=== PATIENT | male | born 1980 | race African-American/Black ===

== ENCOUNTER 2025-06-02 05:02 | Observation (INO) | payer OTHER, SELFPAY ==
--- NOTE | ~2025-06-02 | CT_ITS ---
CLINICAL HISTORY: abcess depth L side face neck CT soft tissue neck with contrast Comparison: CT - CT SOFT TISSUE NECK W IV CON - 06/02/25 06:22 EDT Findings: The visualized intracranial contents are unremarkable. No prevertebral fluid. Epiglottis is within normal limits. Pharyngeal mucosal space and parapharyngeal fat are normal. There is edema and inflammatory changes in the left neck superficially involving the left parotid gland associated with edema/ inflammation of the left masseter muscle. There is also subcutaneous soft tissue edema and skin thickening associated with an abscess located within the subcutaneous fat measuring 1.7 cm in AP dimension, up to 1 cm in depth and 1.7 cm in cephalocaudal dimension. This is seen entirely within the subcutaneous fat though there may be sinus tracts to the skin surface. No suspicious thyroid nodules. No consolidation at the lung apices. No acute fractures. IMPRESSION: Inflammation left face as described from the level of the parotid gland through the submandibular gland. Abscess within the subcutaneous fat as described with associated sinus tracts to the skin surface. There superficial involvement of the left parotid gland and edema/inflammation of the left masseter muscle as well as extensive skin thickening. This document has been electronically signed by: Luis Alberto Li MD on 06/02/2025 09:25:52
[2025-06-02 05:05] VITALS: BP 111/71; PULSE 59; RESP 16; TEMP 36.6; O2SAT 97; BMI 25.1
--- NOTE | 2025-06-02 05:27 | PC.NURSE ---
Addendum entered by Elliott Rees RN 06/02/25 05:30: pt A+Ox4, calm and cooperative Original Note: this RN assumed care of this pt approximately at this time, provider Isaias Carbone at the bedside draining abscess to the left cheek
--- NOTE | 2025-06-02 05:33 | PC.NURSE ---
provider Isaias Carbone at the bedside, drainiage skin abscess to pt left cheek, pt tolerating procedure well, no apparent distress noted, calm and cooperative
--- NOTE | 2025-06-02 05:54 | ED_ITS ---
HPI - Skin/Abscess/Foreign Bdy General Chief complaint: Skin/Abscess/Foreign Body Stated complaint: infection left cheek Time Seen by Provider: 06/02/25 05:18 Source: patient Mode of arrival: ambulatory Limitations: no limitations History of Present Illness ED Provider: Dr. Ne Carbone HPI narrative: Patient comes to the emergency room complaining of an abscess to the left side of the face/neck. Patient states that a proximally 6 days ago, he noted a pimple on his cheek, traits wheezing and out. Patient states that the next day, he started seeing left-sided facial/neck swelling and eventually started developing an abscess and was draining pus. Patient states that couple of days ago he went to [facility]. Patient had a fever, given antipyretics, seems that patient left before being seen. Patient states that since then the abscess has gradually become more big, draining more pus. Patient complaining of localized pain. Related Data Allergies Allergy/AdvReac Type Severity Reaction Status Date / Time No Known Allergies Allergy Verified 06/02/25 05:09 Review of Systems 2 Review of Systems: Constitutional : No Weight loss, No Fever, No Chills, No Night Sweats, No Fatigue, No Malaise ENT/Mouth : No Hearing loss, No Ear Pain, No Nasal Congestion, No Sinus Pain, No Hoarseness, No sore throat, No Rhinorrhea, No Swallowing Difficulty Eyes: No Eye Pain, No Swelling, No Redness, No Foreign Body, No Discharge, No Vision Changes Cardiovascular : No Chest Pain, No SOB, No Dyspnea on Exertion, No Orthopnea, No Edema, No Palpitations Respiratory : No Cough, No Sputum, No Wheezing, No Smoke Exposure, No Dyspnea Gastrointestinal : No Nausea, No Vomiting, No Diarrhea, No Constipation, No abdominal Pain, No Hematochezia, No Melena Genitourinary : no irregular bleeding, No Dysuria, No Urinary Frequency, No Hematuria, No Urinary Incontinence, No Urgency, No Flank Pain, No Urinary Flow Changes, No Hesitancy Musculoskeletal : No joint pain, No Myalgias, No Joint Swelling Skin : Complaining of a large abscess to the left side of the face/neck and pain Neuro : No Weakness, No Numbness, No Paresthesias, No Loss of Consciousness, No Dizziness, No Headache Psych : No Anxiety/Panic, No Depression, No SI/HI/AH/VH, No Social Issues, Heme/Lymph: No Bruising, No Bleeding,No Lymphadenopathy Endocrine : No Polyuria, No Polydipsia, No Temperature Intolerance [facility] Social History Social History Patient Tobacco Use Status: Tobacco use Unknown Advance Directives: No Advance Directives Information Provided: Yes Do you have a plan to hurt others: No Plan Physical Exam 2 Exam: Exam: Appearance: Alert. Oriented X3. No acute distress. Eyes: Pupils equal, round and reactive to light. ENT: Pharynx normal. Neck: Normal inspection. Neck supple. No lymph nodes noted. No crepitus CVS: Normal heart rate and rhythm. Pulses normal. Normal S1 and S2 Respiratory: No respiratory distress. Breath sounds normal. No Wheezing. No rales Abdomen: Soft and nontender. No rigidity. No distention. Skin: Skin warm and dry. In the face, patient has a large abscess, a proximally 4 cm x 3 cm, surrounding induration. Extremities: No lower extremity edema. No Lacerations. No Rash Neuro: Oriented X 3. No motor deficit. No sensory deficit. Moving all extremities. No slurred speech. CN 2 through 12 grossly intact Psych: calm, cooperative, normal affect Vital Signs: Vital Signs: Last Vital Signs Temp 97.8 F 06/02/25 09:42 Pulse 60 06/02/25 09:42 Resp 16 06/02/25 09:42 BP 100/68 06/02/25 09:42 Pulse Ox 100 06/02/25 09:42 O2 Del Method Room Air 06/02/25 09:42 BMI result Body Mass Index 25.1 Medications Administered Discontinued Medications Generic Name Dose Route Start Last Admin Trade Name Stephaneq PRN Reason Stop Dose Admin Vancomycin HCl 2,000 mg in 500 mls @ 250 mls/hr 06/02/25 05:50 06/02/25 08:10 Vancomycin/Ns IV 06/02/25 07:49 Infused ONCE ONE Infusion Piperacillin Sod/Tazobactam 50 mls @ 100 mls/hr 06/02/25 05:50 06/02/25 06:44 Sod 3.375 gm/ Sodium Chloride IV 06/02/25 06:19 Infused ONCE ONE Infusion Sodium Chloride 1,000 mls @ 999 mls/hr 06/02/25 05:50 06/02/25 08:43 Ns IVCONT 10/26/25 06:50 Infused .Q1H1M ONE Infusion Iohexol 60 ml 06/02/25 06:43 06/02/25 06:44 Iohexol 350 Mg/Ml 100 Ml Infus..Btl IV 06/02/25 06:44 60 ml ONCE ONE Administration Ketorolac Tromethamine 30 mg 06/02/25 05:51 06/02/25 06:10 Ketorolac Tromethamine 30 Mg/Ml Vial IVPUSH 06/02/25 05:52 30 mg ONCE ONE Administration Lidocaine HCl 10 ml 06/02/25 05:21 06/02/25 05:27 Lidocaine Hcl 1 % 20 Ml Vial INFILTRATI 06/02/25 05:22 Not Given ONCE ONE Medical Decision Making Medical Decision Making MDM Narrative: Patient was infiltrated with lidocaine. Patient had several small holes were pus was already draining. One of the sites were pus was already draining, a small incision was made to help the drainage. Given the location of the abscess in the face, a large incision was not performed. I was still able to drain a proximally 5 mL of foul-smelling pus. Given the extend of the this is, we will obtain a CT scan, it may be loculated. Yesterday patient was seen at [facility], patient reports that he had fever and he has been taking ibuprofen. Patient has been started on IV Zosyn, vanco and fluids. Patient will likely need inpatient level of care and IV antibiotics Official CT scan report pending. I discussed the patient with Dr. rajput from the Medicine team, patient to be admitted wants we get the report from Radiology Colleague follow-up with the radiology report and doctor's now Patient agrees with plan Time: 09:49 Date: 06/02/25 Provider: Anish Mesa MD I assumed care of this patient from my colleague, physician medical assistant dermatology Get Mrianda at 06:00 hours pending the patient's CT scan of the face and neck. CT scan revealed an abscess within the subcutaneous fat with superficial involvement of the left parotid gland with evidence of cellulitis. Patient was seen by the hospitalist, Dr. Lara by and admitted for further care. Differential Diagnosis Differential Diagnoses: The differential diagnosis associated with the presentation includes (Patient has cellulitis, abscess) Admission/Observation Consideration of admission/observation: Escalation of care including admission/observation considered Consult Healthcare Provider Management of the patient was discussed with: Hospitalist Lab Data [facility] Lab Attestation statement: I reviewed the patient's lab results. 06/02/25 05:54 06/02/25 05:54 Labs: Lab Results 06/02/25 Range/Units 05:54 WBC 6.1 (4.8-10.8) X10*3/uL RBC 4.71 (4.60-5.80) X10*6/uL Hgb 13.1 L (14.0-18.0) g/dl Hct 40.1 L (42.0-52.0) % MCV 85.1 (80.0-98.0) fL MCH 27.8 (27.0-33.0) pg MCHC 32.7 (31.0-36.0) g/dl RDW 12.4 (11.0-16.0) % Plt Count 184 (160-400) X10*3/uL MPV 11.6 (9.4-12.4) fL Immature Gran % (Auto) 0.2 (0.0-0.4) % Neut % (Auto) 65.1 (45-73) % Lymph % (Auto) 22.8 (20-40) % [place] % (Auto) 9.0 (2-11) % Eos % (Auto) 2.6 (0-4) % Baso % (Auto) 0.3 (0-2) % Lymph # (Auto) 1.4 (1.2-4.9) X10*3/uL [place] # (Auto) 0.6 (0.1-1.2) X10*3/uL Eos # (Auto) 0.2 (0.0-0.4) X10*3/uL Baso # (Auto) 0.0 (0.0-0.2) X10*3/uL Abs Immat Gran (auto) 0.01 (0.00-0.03) X10*3/uL Absolute Neuts (auto) 4.0 (2.0-8.3) x10*3/uL Absolute Nucleated RBC 0.000 (0.0-0.012) X10*3/uL Nucleated RBC % (auto) 0.0 (0.0-0.2) /100WBC Sodium 141 (135-145) mmol/L Potassium 4.1 (3.3-5.1) mmol/L Chloride 107 (96-108) mmol/L Carbon Dioxide 26 (22-29) mmol/L Anion Gap 12 (12-20) BUN 15 (9-16) mg/dL Creatinine 1.00 (0.5-1.4) mg/dL Estim Creat Clear Calc 94.2 Estimated GFR > 60 Random Glucose 94 (60-115) mg/dL Lactic Acid 0.7 (0.5-2.0) mmol/L Calcium 9.4 (8.4-10.2) mg/dL Independent Interpretation I performed an independent interpretation of an: CT Scan Interpretation: CT soft tissue neck with contrast Comparison: CT - CT SOFT TISSUE NECK W IV CON - 06/02/25 06:22 EDT Findings: The visualized intracranial contents are unremarkable. No prevertebral fluid. Epiglottis is within normal limits. Pharyngeal mucosal space and parapharyngeal fat are normal. There is edema and inflammatory changes in the left neck superficially involving the left parotid gland associated with edema/ inflammation of the left masseter muscle. There is also subcutaneous soft tissue edema and skin thickening associated with an abscess located within the subcutaneous fat measuring 1.7 cm in AP dimension, up to 1 cm in depth and 1.7 cm in cephalocaudal dimension. This is seen entirely within the subcutaneous fat though there may be sinus tracts to the skin surface. No suspicious thyroid nodules. No consolidation at the lung apices. No acute fractures. IMPRESSION: Inflammation left face as described from the level of the parotid gland through the submandibular gland. Abscess within the subcutaneous fat as described with associated sinus tracts to the skin surface. There superficial involvement of the left parotid gland and edema/inflammation of the left masseter muscle as well as extensive skin thickening. This document has been electronically signed by: Luis Alberto Li MD on 06/02/2025 09:25:52 Procedures Abscess I/D Site: face Side (if applicable): left Local Anesthetic: lidocaine 1% Amount of anesthesia used (mL): 7 Technique: incised with blade Amount of fluid expressed (mL): 5 Packing used?: none Critical Care Time Critical Care Time Critical Care Time: Yes Total Critical Care Time: 45 Attestation: I have personally provided critical care time. Time includes review of lab data, radiology results, discussion with consultants, and monitoring for potential decompensation. Intervention performed as documented. Discharge Plan Discharge Patient Disposition: Admitted As Inpatient Print Language: Syriac
[2025-06-02 06:01] LABS: Hematocrit 40.1 % (42.0-52.0); Hemoglobin 13.1 g/dl (14.0-18.0); Imm Gran Abs Auto 0.01 X10*3/uL (0.00-0.03); Imm Gran Pct Auto 0.2 % (0.0-0.4); Lymphocytes Absolute Auto 1.4 X10*3/uL (1.2-4.9); MANUAL DIFF FLAG NO; Mean Corpuscular HGB Conc 32.7 g/dl (31.0-36.0); Mean Corpuscular Hemoglobin 27.8 pg (27.0-33.0); Mean Corpuscular Volume 85.1 fL (80.0-98.0); NRBC Abs Auto 0.000 X10*3/uL (0.0-0.012); NRBC Pct Auto 0.0 /100WBC (0.0-0.2); Platelet Count 184 X10*3/uL (160-400); Red Blood Count 4.71 X10*6/uL (4.60-5.80); White Blood Count 6.1 X10*3/uL (4.8-10.8)
[2025-06-02] MEDS: vancomycin/NS 2,000 MG/500 ML PLAST..BAG 250 MG IV (06:10)
[2025-06-02 06:15] LABS: Anion Gap 12 (12-20); Blood Urea Nitrogen 15 mg/dL (9-16); Calcium 9.4 mg/dL (8.4-10.2); Carbon Dioxide 26 mmol/L (22-29); Chloride 107 mmol/L (96-108); Creatinine Clr Calc Pharmacy 94.2; Estimated Glomerular Filt Rate > 60; Potassium 4.1 mmol/L (3.3-5.1); Sodium 141 mmol/L (135-145)
--- NOTE | 2025-06-02 06:35 | PC.NURSE ---
approximately this time IVF and ABX paused for pt to go to CT scan
[2025-06-02] MEDS: iohexoL 350 MG/ML 100 ML INFUS..BTL 60 ML IV (06:44)
--- NOTE | 2025-06-02 06:46 | PC.NURSE ---
at this time pt returned from CT scan, IVF and ABX restarted
[2025-06-02 07:14] VITALS: BP 120/77; PULSE 66; RESP 16; TEMP 36.7; O2SAT 99
--- NOTE | 2025-06-02 07:17 | PC.NURSE ---
alert and oriented with even and unlabored respirations, IV antibiotics infusing. vss. awaiting ct scan results and dispo
--- NOTE | 2025-06-02 09:13 | P.HPHOSP_ITS ---
History of Present Illness Date of Service: 06/02/25 Chief Complaint: left face abscess The patient is a 45-year-old male with no significant past medical history who reports picking at the left side of his face 6 days ago. He subsequently developed redness, swelling, and purulent drainage from the site, accompanied by fever. He initially presented to an outside facility but left prior to evaluation due to prolonged wait times. He now presents for further assessment. On arrival, the left facial area was noted to be erythematous, swollen, tender, and draining pus. An incision and drainage procedure was performed at the bedside with expression of purulent material. A CT scan of the face was obtained; results are pending. The patient is currently receiving intravenous vancomycin and piperacillin-tazobactam (Zosyn). Review of Systems 2 Review of Systems: Constitutional: Fever, no chills, Skin: Redness, swelling, drainage left face Yes all other systems are reviewed and are negative PMFSH Social History Advance Directives: No Advance Directives Information Provided: Yes Do you have a plan to hurt others: No Plan Meds Allergies Allergy/AdvReac Type Severity Reaction Status Date / Time No Known Allergies Allergy Verified 06/02/25 05:09 Physical Exam 2 Vital Signs and Narrative: Vital Signs: Last Vital Signs Temp 98.0 F 06/02/25 07:14 Pulse 66 06/02/25 07:14 Resp 16 06/02/25 07:14 BP 120/77 06/02/25 07:14 Pulse Ox 99 06/02/25 07:14 O2 Del Method Room Air 06/02/25 07:14 BMI result Body Mass Index 25.1 Const: Other: General: AO X 3, no acute distress HEENT: swelling of left face, scab--see pic Resp: CTA bilateral CVS: S1,S2,RRR GI: +BS, NT, no distention Skin: No rash Neuro: motor grossly intact Psych: appropriate affect Results Labs 06/02/25 05:54 06/02/25 05:54 Labs: Laboratory Results - last 24 hr 06/02/25 05:54 MCV 85.1 MCH 27.8 MCHC 32.7 RDW 12.4 Plt Count 184 MPV 11.6 Immature Gran % (Auto) 0.2 Neut % (Auto) 65.1 Lymph % (Auto) 22.8 [place] % (Auto) 9.0 Eos % (Auto) 2.6 Baso % (Auto) 0.3 Lymph # (Auto) 1.4 [place] # (Auto) 0.6 Eos # (Auto) 0.2 Baso # (Auto) 0.0 Abs Immat Gran (auto) 0.01 Absolute Neuts (auto) 4.0 Absolute Nucleated RBC 0.000 Nucleated RBC % (auto) 0.0 Anion Gap 12 Estim Creat Clear Calc 94.2 Estimated GFR > 60 Random Glucose 94 Lactic Acid 0.7 Calcium 9.4 Assessment and Plan (1) Abscess of face: Status: Acute (2) Cellulitis: Status: Acute Plan 45-year-old male with no significant past medical history presenting with left facial cellulitis and abscess following local skin trauma (picking), complicated by fever and purulent drainage. Incision and drainage performed with expression of pus. Currently receiving broad-spectrum IV antibiotics. Awaiting CT face to assess for deeper infection or complications. Plan Consult general surgery for evaluation of facial abscess, need for further debridement, and to review imaging once available. Continue IV vancomycin and piperacillin-tazobactam (Zosyn). Adjust based on culture results and clinical response Follow culture result oxycodone and Tylenol for pain DVT risk low, early ambulation regular diet. Quality Stroke Does the patient have a stroke diagnosis?: No VTE Prior VTE?: No VTE Risk Level:: Medical - low VTE Device Contraindication: Treatment Not Indicated VTE Drug Contraindication: Treatment Not Indicated
[2025-06-02 09:42] VITALS: BP 100/68; PULSE 60; RESP 16; TEMP 36.6; O2SAT 100
--- NOTE | 2025-06-02 13:33 | PHA.MEDREC ---
Addendum entered by Megan Louis RPh 06/02/25 13:48: reviewed by [facility]. Original Note: Pharmacy Consult ? Medication Reconciliation Pharmacy has completed the medication reconciliation. Confirmed medication list with patient. Only takes OTC medications for headaches and pain.
[2025-06-02 17:15] VITALS: BMI 25.1
[2025-06-02 17:23] VITALS: BP 131/63; PULSE 60; RESP 18; TEMP 36.4; O2SAT 100
--- NOTE | 2025-06-02 18:16 | P.CONGS_ITS ---
History of Present Illness Consult details Consult date: 06/02/25 Requesting physician: Lokesh Lara Narrative: The patient is a 44-year-old male who comes in with his left face being swollen with purulent material draining from his cheek. He denies any fevers or chills. He says he was that he was picking at his face about a week ago and noticed then that the area on the left side started becoming more swollen thicker tender. He comes in now we has a the drainage. Patient has a elevated white count and CT scan of his face shows about a 1.6 x 1 cm abscess in the superficial subcutaneous skin but deeper down there is a moderate area of the inflammatory changes in the parotid to the submental gland. The area in the ER was already incised and drained little bit Review of Systems 2 Review of Systems: Yes all other systems are reviewed and are negative PMFSH Social History Social History Household Members: None Housing: Apartment Do you presently have visiting nurse or other home services: No Patient Tobacco Use Status: Tobacco use Unknown Have you been hit, kicked, punched, or otherwise hurt by someone within the past year? If so, by whom?: No Do you feel safe in your current relationship?: No Current Relationship Is there a partner from a previous relationship who is making you feel unsafe now?: No Are you made to feel afraid or neglected: No Advance Directives: No Advance Directives Information Provided: Yes Do you have a plan to hurt others: No Plan Recently lost weight without trying: No How much weight loss: Not applicable Eating poorly because of decreased appetite: No Nutrition screen score: 0 Nutrition Risks: No Nutritional Risk Poor oral hygiene: No Meds Allergies Allergy/AdvReac Type Severity Reaction Status Date / Time No Known Allergies Allergy Verified 06/02/25 05:09 Active Medications: Current Medications Acetaminophen (Acetaminophen 325 Mg Tablet) 650 mg PO Q6H PRN PRN Reason: Pain, Mild 1-3,fever,headache Calcium Carbonate (Calcium Carbonate 750 Mg Tab.Chew) 750 mg PO Q4H PRN PRN Reason: Heartburn Magnesium Hydroxide (Milk Of Magnesia 30 Ml Oral.Susp) 30 ml PO DAILY PRN PRN Reason: Constipation Melatonin (Melatonin 3 Mg Tablet) 6 mg PO BEDTIME PRN PRN Reason: Insomnia Oxycodone HCl (Oxycodone Hcl Immed Release 5 Mg Tablet) 5 mg PO Q6H PRN PRN Reason: Pain, Severe (Pain Scale 7-10) Polyethylene Glycol (Polyethylene Glycol 3350 17 Gm Powd.Pack) 17 gm PO DAILY PRN PRN Reason: Constipation Sodium Chloride (0.9 % Sodium Chloride Flush 3 Ml Syringe) 3 ml IVFLUSH QSHIFT RIKI Last Admin: 06/02/25 17:31 Dose: Not Given Home Medications ?Medication ?Instructions ?Recorded ?Confirmed ?Last Taken ?Type acetaminophen-caffeine 500 mg-65 2 tab PO DAILY PRN he adaches 06/02/25 06/02/25 05/31/25 21:00 History mg tablet ibuprofen 200 mg tablet 400 mg PO Q8H PRN Pain 06/0206/02/25 05/31/25 21:00 History Physical Exam 2 Vital Signs: Vital Signs: Last Vital Signs Temp 97.6 F 06/02/25 17:23 Pulse 60 06/02/25 17:23 Resp 18 06/02/25 17:23 BP 131/63 06/02/25 17:23 Pulse Ox 100 06/02/25 17:23 O2 Del Method Room Air 06/02/25 17:23 BMI result Body Mass Index 25.1 Const: General: cooperative, healthy appearing, comfortable and no acute distress Resp: Effort & Inspection: normal respiratory effort Cardio: Rate: regular rate Rhythm: regular rhythm Skin: Other: Patient's left facial area mid face little more anterior than the tragus of the left ear there is an area of induration and firmness about 6 by 4-1/2 cm and there is an area of thin skin bubble about 1 x 1 cm which is draining some purulent material. Results Labs 06/02/25 05:54 06/02/25 05:54 Labs: Abnormal lab results 06/02/25 Range/Units 05:54 Hgb 13.1 L (14.0-18.0) g/dl Hct 40.1 L (42.0-52.0) % Short CBC 06/02/25 Range/Units 05:54 WBC 6.1 (4.8-10.8) X10*3/uL Hgb 13.1 L (14.0-18.0) g/dl Hct 40.1 L (42.0-52.0) % Plt Count 184 (160-400) X10*3/uL [facility] 06/02/25 05:54 Sodium 141 Potassium 4.1 Chloride 107 Carbon Dioxide 26 BUN 15 Creatinine 1.00 Calcium 9.4 All other labs normal. Imaging Additional studies: Reviewed facial CT [address] [address] [address] Scan Report Signed Patient: Michel Dunn MR#: [id number] : 1980 Acct:[id number] Age/Sex: 44 / M ADM Date: 06/02/25 Loc: HO.ED Attending Dr: Ordering Physician: Ne Carbone MD Date of Service: 06/02/25 Procedure(s): CT soft tissue neck w IV con Accession Number(s): [id number] cc: Ne Carbone MD; Physician,None ~ Report Number: [id number]: Total DLP = 529.00 mGy-cm Reason for Exam: abcess depth L side face/neck CLINICAL HISTORY: abcess depth L side face neck CT soft tissue neck with contrast Comparison: CT - CT SOFT TISSUE NECK W IV CON - 06/02/25 06:22 EDT Findings: The visualized intracranial contents are unremarkable. No prevertebral fluid. Epiglottis is within normal limits. Pharyngeal mucosal space and parapharyngeal fat are normal. There is edema and inflammatory changes in the left neck superficially involving the left parotid gland associated with edema/ inflammation of the left masseter muscle. There is also subcutaneous soft tissue edema and skin thickening associated with an abscess located within the subcutaneous fat measuring 1.7 cm in AP dimension, up to 1 cm in depth and 1.7 cm in cephalocaudal dimension. This is seen entirely within the subcutaneous fat though there may be sinus tracts to the skin surface. No suspicious thyroid nodules. No consolidation at the lung apices. No acute fractures. IMPRESSION: Inflammation left face as described from the level of the parotid gland through the submandibular gland. Abscess within the subcutaneous fat as described with associated sinus tracts to the skin surface. There superficial involvement of the left parotid gland and edema/inflammation of the left masseter muscle as well as extensive skin thickening. This document has been electronically signed by: Luis Alberto Li MD on 06/02/2025 09:25:52 Dictated By: Luis Alberto Li MD Signed By: <Electronically signed by Luis Alberto Li MD in OV> 06/02/25925 DD/ 4 TD/TT: 06/02/25924 Woodyard Operator: Assessment and Plan (1) Abscess of face: Status: Acute Plan 44-year-old nondiabetic male with left facial abscess and inflammatory wounds on the cheek. I think most of the abscesses drained and that the area firm this is more indurated tissue which may over time pus out and drained. In the meantime today the left cheek area was squeezed trying to get out as much of the murky purulent material as possible. At this point plan will be to just do warm compresses and treat the more indurated area with IV antibiotics. Plan for surgery to follow along in order to determine whether more incision and drainage needs to be carried out versus the wound improving with the antibiotics and warm compresses. This time no need for further intervention. CT scan evaluated Continue with IV Zosyn and vancomycin follow up blood culture results and adjust accordingly Procedures Date of Service Date of Service: 06/02/25
[2025-06-02 19:56] VITALS: BP 122/76; PULSE 57; RESP 18; TEMP 36.6; O2SAT 99
[2025-06-02] MEDS: 0.9 % Sodium Chloride Flush 3 ML SYRINGE IVFLUSH (21:43)
[2025-06-03 03:15] VITALS: BP 102/55; PULSE 68; RESP 18; TEMP 36.6; O2SAT 97
[2025-06-03 06:49] LABS: MANUAL DIFF FLAG NO
[2025-06-03 06:52] LABS: Hematocrit 42.0 % (42.0-52.0); Hemoglobin 13.3 g/dl (14.0-18.0); Imm Gran Abs Auto 0.01 X10*3/uL (0.00-0.03); Imm Gran Pct Auto 0.2 % (0.0-0.4); Lymphocytes Absolute Auto 1.3 X10*3/uL (1.2-4.9); Mean Corpuscular HGB Conc 31.7 g/dl (31.0-36.0); Mean Corpuscular Hemoglobin 27.4 pg (27.0-33.0); Mean Corpuscular Volume 86.4 fL (80.0-98.0); NRBC Abs Auto 0.000 X10*3/uL (0.0-0.012); NRBC Pct Auto 0.0 /100WBC (0.0-0.2); Platelet Count 186 X10*3/uL (160-400); Red Blood Count 4.86 X10*6/uL (4.60-5.80); White Blood Count 5.6 X10*3/uL (4.8-10.8)
[2025-06-03 07:15] LABS: Anion Gap 10 (12-20); Blood Urea Nitrogen 14 mg/dL (9-16); Calcium 9.2 mg/dL (8.4-10.2); Carbon Dioxide 24 mmol/L (22-29); Chloride 110 mmol/L (96-108); Creatinine Clr Calc Pharmacy 105.9; Estimated Glomerular Filt Rate > 60; Potassium 4.3 mmol/L (3.3-5.1); Sodium 140 mmol/L (135-145)
[2025-06-03 07:34] VITALS: BP 112/77; PULSE 74; RESP 18; TEMP 37; O2SAT 100
[2025-06-03] MEDS: 0.9 % Sodium Chloride Flush 3 ML SYRINGE IVFLUSH ×3 (08:21→20:09)
--- NOTE | 2025-06-03 08:37 | PM.PNGS ---
Subjective Subjective Date of Service: 06/03/25 <Gabe Cheatham PA-C - Last Filed: 06/03/25 09:51> 06/03/25 <David Merino MD - Last Filed: 06/03/25 10:59> Interval history: doing well, states this site continues to drain pus. pain improving. <Gabe Cheatham PA-C - Last Filed: 06/03/25 09:51> Physical Exam Vital Signs: Vital Signs: Last Vital Signs Temp 98.6 F 06/03/25 07:34 Pulse 74 06/03/25 07:34 Resp 18 06/03/25 07:34 BP 112/77 06/03/25 07:34 Pulse Ox 100 06/03/25 07:34 O2 Del Method Room Air 06/03/25 07:34 BMI result Body Mass Index 25.1 <Gabe Cheatham PA-C - Last Filed: 06/03/25 09:51> HEENT: Head images:  1. abscess site, mild edema, continues to drain small amounts of thick purulent fluid that was expressed manually. cellulitis improving <Gabe Cheatham PA-C - Last Filed: 06/03/25 09:51> Objective Data Active Medications Acetaminophen (Acetaminophen 325 Mg Tablet) 650 mg PO Q6H PRN PRN Reason: Pain, Mild 1-3,fever,headache Calcium Carbonate (Calcium Carbonate 750 Mg Tab.Chew) 750 mg PO Q4H PRN PRN Reason: Heartburn Piperacillin Sod/Tazobactam (Sod 3.375 gm/ Sodium Chloride) 50 mls @ 100 mls/hr IV Q6H [facility] Last Admin: 06/03/25 08:21 Dose: 100 mls/hr Documented By: RAMONA Vancomycin HCl (Vancomycin/Ns) 2,000 mg in 500 mls @ 250 mls/hr IV ONCE ONE Stop: 06/03/25 10:14 Magnesium Hydroxide (Milk Of Magnesia 30 Ml Oral.Susp) 30 ml PO DAILY PRN PRN Reason: Constipation Melatonin (Melatonin 3 Mg Tablet) 6 mg PO BEDTIME PRN PRN Reason: Insomnia Oxycodone HCl (Oxycodone Hcl Immed Release 5 Mg Tablet) 5 mg PO Q6H PRN PRN Reason: Pain, Severe (Pain Scale 7-10) Pharmacy Consult (Consult Rx Vancomycin Dosing) 1 each MISCELLANE DAILY PRN PRN Reason: Consult order Polyethylene Glycol (Polyethylene Glycol 3350 17 Gm Powd.Pack) 17 gm PO DAILY PRN PRN Reason: Constipation Sodium Chloride (0.9 % Sodium Chloride Flush 3 Ml Syringe) 3 ml IVFLUSH QSHIFT [facility] Last Admin: 06/03/25 08:21 Dose: 3 ml Documented By: RAMONA <Gabe Cheatham PA-C - Last Filed: 06/03/25 09:51> Labs CBC & Chem 7: 06/03/25 06:16 06/03/25 06:16 <Gabe Cheatham PA-C - Last Filed: 06/03/25 09:51> Labs: Laboratory Results - last 24 hr 06/03/25 06:16 MCV 86.4 MCH 27.4 MCHC 31.7 RDW 12.3 Plt Count 186 MPV 11.5 Immature Gran % (Auto) 0.2 Neut % (Auto) 66.3 Lymph % (Auto) 22.7 [place] % (Auto) 7.2 Eos % (Auto) 3.2 Baso % (Auto) 0.4 Lymph # (Auto) 1.3 [place] # (Auto) 0.4 Eos # (Auto) 0.2 Baso # (Auto) 0.0 Abs Immat Gran (auto) 0.01 Absolute Neuts (auto) 3.7 Absolute Nucleated RBC 0.000 Nucleated RBC % (auto) 0.0 Anion Gap 10 L Estim Creat Clear Calc 105.9 Estimated GFR > 60 Random Glucose 91 Calcium 9.2 <Gabe Cheatham PA-C - Last Filed: 06/03/25 09:51> Microbiology Microbiology Results: Microbiology 06/02/25 05:54 Blood Culture - Preliminary Blood - Venous No growth after 24 hours. 06/02/25 05:54 Blood Culture - Preliminary Blood - Venous No growth after 24 hours. <Gabe Cheatham PA-C - Last Filed: 06/03/25 09:51> Procedures Date of Service Date of Service: 06/03/25 <Gabe Cheatham PA-C - Last Filed: 06/03/25 09:51> 06/03/25 <David Merino MD - Last Filed: 06/03/25 10:59> Progress Note: A&P Assessment and plan (1) Abscess of face: Status: Acute <Gabe Cheatham PA-C - Last Filed: 06/03/25 09:51> Assessment and Plan: Appears to have a carbuncle of the left cheek I and D done by the ED staff Has multiple small areas with purulent drainage, draining freely I encouraged him to massage the area to promote further drainage Dressings changed Continue antibiotics We will re-evaluate tomorrow Seen and examined independently <David Merino MD - Last Filed: 06/03/25 10:59> (2) Cellulitis: Status: Acute <Gabe Cheatham PA-C - Last Filed: 06/03/25 09:51> Assessment and Plan: 44 year old male followed for cellulitis and abscess of the left side of the face s/p I&D. Doing okay, continues to drain small amounts of pus. His pain is improving overall., denies fevers or chills. Blood cultures have no growth after 24 hours. on exam there remains some purulent drainage and mild edema of the affected area. The pus was expressed manually. overall the area appears to be improving, however he will need to express this himself if it continues to collect pus. recommended he try to express something daily as long as this is draining. Should also continue to use warm compress a few times daily to help soften the induration break up any loculations or additional fluid collections continue IV abx warm compress express additional pus collections as needed <Gabe Cheatham PA-C - Last Filed: 06/03/25 09:51> Time Spent With Patient Time: Total time managing care of this patient today ____ minutes. <Gabe Cheatham PA-C - Last Filed: 06/03/25 09:51> Quality Stroke Does the patient have a stroke diagnosis?: No <Gabe Cheatham PA-C - Last Filed: 06/03/25 09:51> VTE Prior VTE?: No <Gabe Cheatham PA-C - Last Filed: 06/03/25 09:51> VTE Risk Level:: Medical - low <Gabe Cheatham PA-C - Last Filed: 06/03/25 09:51> VTE Device Contraindication: Treatment Not Indicated <MINH Owens Last Filed: 06/03/25 09:51> VTE Drug Contraindication: Treatment Not Indicated <Gabe Cheatham PA-C - Last Filed: 06/03/25 09:51>
[2025-06-03] MEDS: vancomycin/NS 2,000 MG/500 ML PLAST..BAG 250 MG IV (09:08)
--- NOTE | 2025-06-03 10:49 | HO.PM.IMPN ---
Subjective Subjective Date of Service: 06/03/25 Interval History: F/u on left face cellulitis area draining, feels better Review of Systems Constitutional: Fever, no chills, Skin: Redness, swelling, drainage left face Physical Exam Vital Signs: Vital Signs: Last Vital Signs Temp 98.6 F 06/03/25 07:34 Pulse 74 06/03/25 07:34 Resp 18 06/03/25 07:34 BP 112/77 06/03/25 07:34 Pulse Ox 100 06/03/25 07:34 O2 Del Method Room Air 06/03/25 07:34 BMI result Body Mass Index 25.1 Const: Other: General: AO X 3, no acute distress Resp: CTA bilateral CVS: S1,S2,RRR GI: +BS, NT, no distention Skin: left face area with some swelling, superficial oozing of blood, minimal erythema Neuro: motor grossly intact Psych: appropriate affect Objective Data Active Medications Acetaminophen (Acetaminophen 325 Mg Tablet) 650 mg PO Q6H PRN PRN Reason: Pain, Mild 1-3,fever,headache Calcium Carbonate (Calcium Carbonate 750 Mg Tab.Chew) 750 mg PO Q4H PRN PRN Reason: Heartburn Piperacillin Sod/Tazobactam (Sod 3.375 gm/ Sodium Chloride) 50 mls @ 100 mls/hr IV Q6H [facility] Last Infusion: 06/03/25 09:08 Dose: Infused Documented By: RAMONA Vancomycin HCl 1,250 mg/ (Sodium Chloride) 250 mls @ 166.667 mls/hr IV Q12H [facility] Magnesium Hydroxide (Milk Of Magnesia 30 Ml Oral.Susp) 30 ml PO DAILY PRN PRN Reason: Constipation Melatonin (Melatonin 3 Mg Tablet) 6 mg PO BEDTIME PRN PRN Reason: Insomnia Oxycodone HCl (Oxycodone Hcl Immed Release 5 Mg Tablet) 5 mg PO Q6H PRN PRN Reason: Pain, Severe (Pain Scale 7-10) Pharmacy Consult (Consult Rx Vancomycin Dosing) 1 each MISCELLANE DAILY PRN PRN Reason: Consult order Polyethylene Glycol (Polyethylene Glycol 3350 17 Gm Powd.Pack) 17 gm PO DAILY PRN PRN Reason: Constipation Sodium Chloride (0.9 % Sodium Chloride Flush 3 Ml Syringe) 3 ml IVFLUSH QSHIFT [facility] Last Admin: 06/03/25 08:21 Dose: 3 ml Documented By: RAMONA Labs 06/03/25 06:16 06/03/25 06:16 Labs: Laboratory Results - last 24 hr 06/03/25 06:16 MCV 86.4 MCH 27.4 MCHC 31.7 RDW 12.3 Plt Count 186 MPV 11.5 Immature Gran % (Auto) 0.2 Neut % (Auto) 66.3 Lymph % (Auto) 22.7 [place] % (Auto) 7.2 Eos % (Auto) 3.2 Baso % (Auto) 0.4 Lymph # (Auto) 1.3 [place] # (Auto) 0.4 Eos # (Auto) 0.2 Baso # (Auto) 0.0 Abs Immat Gran (auto) 0.01 Absolute Neuts (auto) 3.7 Absolute Nucleated RBC 0.000 Nucleated RBC % (auto) 0.0 Anion Gap 10 L Estim Creat Clear Calc 105.9 Estimated GFR > 60 Random Glucose 91 Calcium 9.2 Microbiology Microbiology Results: Microbiology 06/02/25 05:54 Blood Culture - Preliminary Blood - Venous No growth after 24 hours. 06/02/25 05:54 Blood Culture - Preliminary Blood - Venous No growth after 24 hours. Assessment and Plan (1) Abscess of face: Status: Acute (2) Cellulitis: Status: Acute Plan 45-year-old male with no significant past medical history presenting with left facial cellulitis and abscess following local skin trauma (picking), complicated by fever and purulent drainage. Incision and drainage performed with expression of pus. Currently receiving broad-spectrum IV antibiotics. Awaiting CT face to assess for deeper infection or complications. Plan general surgery following and advise manual expression of the area Continue IV vancomycin and piperacillin-tazobactam (Zosyn), and once improve, consider changingg to PO Doxy + Augmentin for 7 days total Follow culture result oxycodone and Tylenol for pain DVT risk low, early ambulation regular diet. Quality Stroke Does the patient have a stroke diagnosis?: No VTE Prior VTE?: No VTE Risk Level:: Medical - low VTE Device Contraindication: Treatment Not Indicated VTE Drug Contraindication: Treatment Not Indicated
[2025-06-03 15:16] VITALS: BP 115/76; PULSE 68; RESP 18; TEMP 37.6; O2SAT 98
--- NOTE | 2025-06-03 15:50 | MHC.CM.PN ---
PT REPORTS HE LIVES ALONE PT IS INDEPENDENT, WORKS AND DRIVES HE SAYS HE DOES HAVE A PCP FROM [facility], BUT IS NEVER ABLE TO REACH THEM, SO HAS BEEN LOOKING FOR A NEW ONE PCP BROCHURE PROVIDED DECLINES A HCP OBSERVATION NOTICE DELIVERED DCP: HOME VIA SELF-TRANSPORT
[2025-06-03 20:00] VITALS: BP 110/70; PULSE 83; RESP 20; TEMP 36.7; O2SAT 99
[2025-06-04 03:50] VITALS: BP 104/67; PULSE 59; RESP 18; TEMP 36.8; O2SAT 100
[2025-06-04 07:20] LABS: Creatinine Clr Calc Pharmacy 103.5; Estimated Glomerular Filt Rate > 60
--- NOTE | 2025-06-04 07:33 | HE.PHANOTE ---
Re: Vanco Renal is improved and stable. Trough returned 9.7. Continue current dose of 1250mg q12h predicted AUC 528, predicted trough 15.8. Next trough 06/05 @ 0700.
[2025-06-04 07:49] VITALS: BP 106/69; PULSE 58; RESP 16; TEMP 37.1; O2SAT 97
--- NOTE | 2025-06-04 07:50 | P.PNGS_ITS ---
Subjective Subjective Date of Service: 06/04/25 <Gabe Cheatham PA-C - Last Filed: 06/04/25 07:56> 06/04/25 <David Merino MD - Last Filed: 06/04/25 12:38> Interval history: doing well. Denies pain. denies fevers or chills. states there has been less drainage on dressings when they changed it. <Gabe Cheatham PA-C - Last Filed: 06/04/25 07:56> Physical Exam 2 Vital Signs: Vital Signs: Last Vital Signs Temp 98.8 F 06/04/25 07:49 Pulse 58 06/04/25 07:49 Resp 16 06/04/25 07:49 BP 106/69 06/04/25 07:49 Pulse Ox 97 06/04/25 07:49 O2 Del Method Room Air 06/04/25 07:49 BMI result Body Mass Index 25.1 <Gabe Cheatham PA-C - Last Filed: 06/04/25 07:56> Const: General: comfortable and no acute distress <Gabe Cheatham PA-C - Last Filed: 06/04/25 07:56> Orientation/consciousness: patient oriented x3 <Gabe Cheatham PA-C - Last Filed: 06/04/25 07:56> HEENT: Head images: 1. moderate induration, scant blood expressed, no further purulence. Non tender improvement in edema <Gabe Cheatham PA-C - Last Filed: 06/04/25 07:56> Resp: Effort & Inspection: normal respiratory effort and able to speak in complete sentences <Gabe Cheatham PA-C - Last Filed: 06/04/25 07:56> Neuro: General: patient oriented x3 <Gabe Cheatham PA-C - Last Filed: 06/04/25 07:56> Objective Data Active Medications Acetaminophen (Acetaminophen 325 Mg Tablet) 650 mg PO Q6H PRN PRN Reason: Pain, Mild 1-3,fever,headache Last Admin: 06/03/25 21:29 Dose: 650 mg Documented By: BRANDON Calcium Carbonate (Calcium Carbonate 750 Mg Tab.Chew) 750 mg PO Q4H PRN PRN Reason: Heartburn Piperacillin Sod/Tazobactam (Sod 3.375 gm/ Sodium Chloride) 50 mls @ 100 mls/hr IV Q6H [facility] Last Infusion: 06/04/25 02:50 Dose: Infused Documented By: BRANDON Vancomycin HCl 1,250 mg/ (Sodium Chloride) 250 mls @ 166.667 mls/hr IV Q12H [facility] Last Infusion: 06/03/25 22:51 Dose: Infused Documented By: BRANDON Magnesium Hydroxide (Milk Of Magnesia 30 Ml Oral.Susp) 30 ml PO DAILY PRN PRN Reason: Constipation Melatonin (Melatonin 3 Mg Tablet) 6 mg PO BEDTIME PRN PRN Reason: Insomnia Oxycodone HCl (Oxycodone Hcl Immed Release 5 Mg Tablet) 5 mg PO Q6H PRN PRN Reason: Pain, Severe (Pain Scale 7-10) Pharmacy Consult (Consult Rx Vancomycin Dosing) 1 each MISCELLANE DAILY PRN PRN Reason: Consult order Polyethylene Glycol (Polyethylene Glycol 3350 17 Gm Powd.Pack) 17 gm PO DAILY PRN PRN Reason: Constipation Sodium Chloride (0.9 % Sodium Chloride Flush 3 Ml Syringe) 3 ml IVFLUSH QSHIFT [facility] Last Admin: 06/03/25 20:09 Dose: 3 ml Documented By: BRANDON <Gabe Cheatham PA-C - Last Filed: 06/04/25 07:56> Labs CBC & Chem 7: 06/03/25 06:16 06/04/25 06:42 <Gabe Cheatham PA-C - Last Filed: 06/04/25 07:56> Labs: Laboratory Results - last 24 hr 06/04/25 06/04/25 06:42 06:43 Hold Purple Top SEE NOTE Estim Creat Clear Calc 103.5 Estimated GFR > 60 Random Vancomycin 9.7 L <Gabe Cheatham PA-C - Last Filed: 06/04/25 07:56> Microbiology Microbiology Results: Microbiology 06/02/25 05:54 Blood Culture - Preliminary Blood - Venous No growth after 24 hours. 06/02/25 05:54 Blood Culture - Preliminary Blood - Venous No growth after 24 hours. <Gabe Cheatham PA-C - Last Filed: 06/04/25 07:56> Procedures Date of Service Date of Service: 06/04/25 <Gabe Cheatham PA-C - Last Filed: 06/04/25 07:56> 06/04/25 <David Merino MD - Last Filed: 06/04/25 12:38> Progress Note: A&P Assessment and plan (1) Abscess of face: Status: Acute <Gabe Cheatham PA-C - Last Filed: 06/04/25 07:56> Assessment and Plan: Feels well Much less induration on the abscess site No significant drainage Much improved overall Okay to be discharged on oral antibiotics Warm compresses Follow up in the office p.r.n. Seen and examined independently <David Merino MD - Last Filed: 06/04/25 12:38> (2) Cellulitis: Status: Acute <Gabe Cheatham PA-C - Last Filed: 06/04/25 07:56> Assessment and Plan: 44 year old male followed for cellulitis and abscess of the left side of the face s/p I&D. Doing well. He denies pain, denies fevers or chills. No longer draining. Blood cultures have no growth after 24 hours. on exam there is some scant blood expressed from the wound. There is moderate induration of the surrounding tissue, but edema seems improved today. no further purulence or fluid collections appreciated. overall the area appears to be improving, Should continue to use warm compress a few times daily to help soften the induration. no interventions planned, further care per medicine. General surgery will sign off, please reconsult with any further concerns continue IV abx warm compress express additional pus collections as needed <Gabe Cheatham PA-C - Last Filed: 06/04/25 07:56> Time Spent With Patient Time: Total time managing care of this patient today ____ minutes. <Gabe Cheatham PA-C - Last Filed: 06/04/25 07:56> Quality Stroke Does the patient have a stroke diagnosis?: No <Gabe Cheatham PA-C - Last Filed: 06/04/25 07:56> VTE Prior VTE?: No <Gabe Cheatham PA-C - Last Filed: 06/04/25 07:56> VTE Risk Level:: Medical - low <Gabe Cheatham PA-C - Last Filed: 06/04/25 07:56> VTE Device Contraindication: Treatment Not Indicated <Gabe Cheatham PA-C - Last Filed: 06/04/25 07:56> VTE Drug Contraindication: Treatment Not Indicated <Gabe Cheatham PA-C - Last Filed: 06/04/25 07:56>
[2025-06-04] MEDS: 0.9 % Sodium Chloride Flush 3 ML SYRINGE IVFLUSH ×3 (08:08→19:42)
--- NOTE | 2025-06-04 14:29 | P.PNIM_ITS ---
Subjective Subjective Date of Service: 06/04/25 Interval History: Feels much better overall. Minimal drainage today. Surgery and Wound Care evaluated patient. No fevers chills or rigors. Review of Systems Review of Systems: Yes all other systems are reviewed and are negative Physical Exam 2 Vital Signs: Vital Signs: Last Vital Signs Temp 98.8 F 06/04/25 07:49 Pulse 58 06/04/25 07:49 Resp 16 06/04/25 07:49 BP 106/69 06/04/25 07:49 Pulse Ox 97 06/04/25 07:49 O2 Del Method Room Air 06/04/25 07:49 BMI result Body Mass Index 25.1 Objective Data Active Medications Acetaminophen (Acetaminophen 325 Mg Tablet) 650 mg PO Q6H PRN PRN Reason: Pain, Mild 1-3,fever,headache Last Admin: 06/04/25 10:27 Dose: 650 mg Documented By: RAMONA Calcium Carbonate (Calcium Carbonate 750 Mg Tab.Chew) 750 mg PO Q4H PRN PRN Reason: Heartburn Piperacillin Sod/Tazobactam (Sod 3.375 gm/ Sodium Chloride) 50 mls @ 100 mls/hr IV Q6H [facility] Last Infusion: 06/04/25 08:49 Dose: Infused Documented By: RAMONA Vancomycin HCl 1,250 mg/ (Sodium Chloride) 250 mls @ 166.667 mls/hr IV Q12H [facility] Last Infusion: 06/04/25 11:17 Dose: Infused Documented By: RAMONA Magnesium Hydroxide (Milk Of Magnesia 30 Ml Oral.Susp) 30 ml PO DAILY PRN PRN Reason: Constipation Melatonin (Melatonin 3 Mg Tablet) 6 mg PO BEDTIME PRN PRN Reason: Insomnia Oxycodone HCl (Oxycodone Hcl Immed Release 5 Mg Tablet) 5 mg PO Q6H PRN PRN Reason: Pain, Severe (Pain Scale 7-10) Pharmacy Consult (Consult Rx Vancomycin Dosing) 1 each MISCELLANE DAILY PRN PRN Reason: Consult order Polyethylene Glycol (Polyethylene Glycol 3350 17 Gm Powd.Pack) 17 gm PO DAILY PRN PRN Reason: Constipation Sodium Chloride (0.9 % Sodium Chloride Flush 3 Ml Syringe) 3 ml IVFLUSH QSHIFT [facility] Last Admin: 06/04/25 08:08 Dose: 3 ml Documented By: RAMONA Labs 06/03/25 06:16 06/04/25 06:42 Labs: Laboratory Results - last 24 hr 06/04/25 06/04/25 06:42 06:43 Hold Purple Top SEE NOTE Estim Creat Clear Calc 103.5 Estimated GFR > 60 Random Vancomycin 9.7 L Microbiology Microbiology Results: Microbiology 06/02/25 05:54 Blood Culture - Preliminary Blood - Venous No growth after 48 hours. 06/02/25 05:54 Blood Culture - Preliminary Blood - Venous No growth after 48 hours. Assessment and Plan (1) Abscess of face: Status: Acute (2) Cellulitis: Status: Acute Plan 45-year-old male with no significant past medical history presenting with left facial cellulitis and abscess following local skin trauma (picking), complicated by fever and purulent drainage. Incision and drainage performed with expression of pus. Currently receiving broad-spectrum IV antibiotics. Awaiting CT face to assess for deeper infection or complications. Left facial abscess s/p I and D Facial cellulitis S/p I&D of the area, with manual expression. Plan Continue IV vancomycin and piperacillin-tazobactam (Zosyn), and once improve, consider changingg to PO Doxy + Augmentin for 7 days total Follow culture result oxycodone and Tylenol for pain [employer] - VTE: Early ambulation - CODE STATUS: Full code - DIET: Regular Total time managing care of this patient today: 35 minutes. Quality Stroke Does the patient have a stroke diagnosis?: No VTE Prior VTE?: No VTE Risk Level:: Medical - low VTE Device Contraindication: Treatment Not Indicated VTE Drug Contraindication: Treatment Not Indicated
[2025-06-04 16:07] VITALS: BP 117/74; PULSE 72; RESP 18; TEMP 36.6; O2SAT 98
[2025-06-04 19:29] VITALS: BP 105/58; PULSE 57; RESP 18; TEMP 36.5; O2SAT 96
[2025-06-05 04:00] VITALS: BP 109/55; PULSE 59; RESP 18; TEMP 36.5; O2SAT 99
[2025-06-05 07:06] VITALS: BP 100/58; PULSE 64; RESP 16; TEMP 36.6; O2SAT 98
[2025-06-05 07:42] LABS: Creatinine Clr Calc Pharmacy 104.7; Estimated Glomerular Filt Rate > 60
[2025-06-05] MEDS: 0.9 % Sodium Chloride Flush 3 ML SYRINGE IVFLUSH (07:55)
--- NOTE | 2025-06-05 07:59 | HE.PHANOTE ---
RE: VANCO DOSING Trough came back as 11.2 mg/L, renal function is stable. Continue with dose 1250 mg q12h, next trough is scheduled for 06/06/25 @0700.
--- NOTE | 2025-06-05 14:27 | P.DS_ITS ---
DS: Providers Provider Date of Service: 06/05/25 Date of admission: 06/02/25 09:12 Date of discharge: 06/05/25 Primary care physician: None Physician Consults: 06/02/25 09:25 Consult to General Surgery Routine Consulting Provider: [facility] [place] [facility] Reason for consultation: face abscess DS: Diagnosis Discharge Diagnosis (1) Abscess of face: Status: Acute (2) Cellulitis: Status: Acute DS: Summary Hospital Course Hospital Course: Reason for Admission The patient presented with a 6-day history of progressive left facial swelling, erythema, and purulent drainage following local skin trauma (picking at a pimple). He reported associated fever and pain. He initially sought care at an outside facility but left prior to evaluation. On arrival, he was found to have a fluctuant, draining abscess on the left cheek/jaw area (see attached image), with surrounding cellulitis. Hospital Course * Initial Evaluation: On admission, the patient was afebrile and hemodynamically stable. Physical exam revealed a 4 x 3 cm indurated, fluctuant abscess with overlying erythema and purulent drainage on the left lower cheek/jaw. No airway compromise or systemic toxicity was noted. * Imaging: CT soft tissue neck with IV contrast demonstrated a 1.7 x 1 x 1.7 cm subcutaneous abscess with associated cellulitis, superficial involvement of the left parotid gland, and edema of the left masseter muscle. No deep space extension or airway compromise. * Procedures: Bedside incision and drainage performed with expression of ?5 mL of purulent material. No packing was placed. Wound care and general surgery were consulted. * Antibiotic Therapy: Initiated on IV vancomycin and piperacillin-tazobactam (Zosyn). Blood cultures remained negative. No growth on wound cultures. * Clinical Course: The patient improved steadily with IV antibiotics and local wound care (warm compresses). Drainage decreased, induration and edema improved, and the wound became non-tender with no further purulence. He remained afebrile and hemodynamically stable throughout hospitalization. No further surgical intervention was required. * Pain Management: Managed with acetaminophen and oxycodone as needed. * Other: No complications. No evidence of deep neck space infection, osteomyelitis, or systemic involvement. Pertinent Laboratory and Imaging Results * CBC:?WNL except for mild anemia (Hgb 13.1 g/dL) * BMP:?WNL * Lactic Acid:?Normal * Blood Cultures:?No growth * CT Neck (06/02/25): * Subcutaneous abscess (1.7 x 1 x 1.7 cm) left cheek * Superficial parotid and masseter involvement * No deep extension or airway compromise Discharge Condition * Afebrile, hemodynamically stable * Marked improvement in facial swelling and induration * Minimal to no drainage from wound * No pain, no systemic symptoms * Tolerating regular diet, ambulating independently Discharge Medications * Doxycycline 100 mg PO BID x 7 days * Amoxicillin-clavulanate (Augmentin) 875-125 mg PO BID x 7 days * Acetaminophen 650 mg PO Q6H PRN pain/fever * Oxycodone 5 mg PO Q6H PRN severe pain * Continue home medications as previously prescribed Follow-Up * Primary Care / Wound Care Clinic:?Within 3-5 days * Reconsult General Surgery:?If new or worsening symptoms develop Summary This is a 44-year-old male admitted for left facial abscess and cellulitis, likely secondary to local skin trauma. He underwent successful bedside I&D, received appropriate IV antibiotics, and improved clinically with transition to oral therapy. He is stable for discharge with close outpatient follow-up. Status at Discharge Cognitive/behavioral status at discharge: Discharge Condition * Afebrile, hemodynamically stable * Marked improvement in facial swelling and induration * Minimal to no drainage from wound * No pain, no systemic symptoms * Tolerating regular diet, ambulating independently Functional status at discharge: independent ambulation Overall status at discharge: patient is back to baseline Time Attestation Total time managing care of this patient today: 35 mintues. Discharge Coordination Time (in mins): 15 Quality: Safe Use of Opioids Does Pt have an Active Cancer Diagnosis on the Problem List?: No Quality: Stroke Does the patient have a stroke diagnosis?: No Physical Exam Vital Signs: Vital Signs: Last Vital Signs Temp 97.9 F 06/05/25 07:06 Pulse 64 06/05/25 07:06 Resp 16 06/05/25 07:06 BP 100/58 L 06/05/25 07:06 Pulse Ox 98 06/05/25 07:06 O2 Del Method Room Air 06/05/25 07:06 BMI result Body Mass Index 25.1 DS: Data Data Completed and Pending Labs on day of discharge: Laboratory Results - last 24 hr 06/05/25 07:17 Creatinine 0.90 Estim Creat Clear Calc 104.7 Estimated GFR > 60 Random Vancomycin 11.2 L Preliminary micro results at discharge 06/02/25 05:54 Blood Culture - Preliminary Blood - Venous No growth after 48 hours. 06/02/25 05:54 Blood Culture - Preliminary Blood - Venous No growth after 48 hours. Discharge Plan Discharge Anticipated Discharge Date/Time: 06/05/25 14:24 Patient Disposition: Home, Self-Care Discharge Diagnosis: facial abscess with cellulitis Referrals: Physician,None [Primary Care Provider, Medical] - 1 Week Discharge Medications: New doxycycline monohydrate 100 mg tablet 100 mg PO BID 7 Days Qty: 14 0RF amoxicillin-pot clavulanate [Augmentin] 500-125 mg tablet 1 tab PO BID 7 Days Qty: 14 0RF oxycodone 5 mg Tablet 5 mg PO Q6H PRN (Reason: Pain, Severe (Pain Scale 7-10)) 3 Days Qty: 12 0RF Rx Instructions: Partial Fill upon patient request. Continued acetaminophen-caffeine 500-65 mg Tablet 2 tab PO DAILY PRN (Reason: headaches) ibuprofen 200 mg Tablet 400 mg PO Q8H PRN (Reason: Pain) Diet: Advance to usual diet Activity on Discharge: As tolerated Stand Alone Forms: Patient Portal Discharge page Print Language: Pashto Care Plan Goals: as above Health Concerns: as above Plan of Treatment: Discharge Instructions * Continue oral antibiotics as prescribed to complete a 7-day course * Apply warm compresses to the affected area 3-4 times daily * Keep wound clean and dry; change dressings as needed * Monitor for signs of recurrent infection: increased redness, swelling, pain, fever, or purulent drainage * Return to ED immediately for difficulty breathing, swallowing, or rapidly worsening swelling * Outpatient follow-up with primary care or wound care clinic in 3-5 days, or sooner if concerns arise Assessment: 44-year-old male admitted for left facial abscess and cellulitis, likely secondary to local skin trauma. He underwent successful bedside I&D, received appropriate IV antibiotics, and improved clinically with transition to oral therapy. He is stable for discharge with close outpatient follow-up
--- NOTE | 2025-06-05 14:51 | HO.SKINPHOTO ---
Wound on left check area - dressing changed. Warm compress applied for about 15 minutes, area softened, attempted to extract any fluid with gentle squeezing. Pin size drop of cream/blood drainage removed. Cleaned with saline and pat dry.Petroleum gel, gauze and tegaderm applied per recommendation of wound care nurse. Patient tolerated well.
--- NOTE | 2025-06-05 15:49 | HO.WOUND ---
Wound Consult: Initial 44yr old?[place] [facility] 09[place] - See progress notes and H&P for detailed history.? While on Med Surg unit direct care nurse asked to clairify order and topical wound care recommendations for left face. Skin assessed and brief chart review completed - ordrers in place by Dr. Espino - order clairfied and reentered for warm soaks. Patient agreeable to assessment and photo documentation.? Wound Bed: scattered dried stable scabs Drainage / Odor: none Edges: ? attached Peggy wound: per pt and staff improved - redness form induration and swelling noted - No Fluctuance or Warmth noted Pain: mild tenderness reported Goals of Treatment: ? moist wound healing to allow drainage to occur. Recommendations: Left face: 3-4 times a day apply warm moist heat (wet warm wash cloth) to left cheek. Advise patient to gently express drainage after application with wash cloth. Dry. Apply thin layer of vaseline, cover with dry gauze.
[2025-06-05 16:00] VITALS: BP 111/68; PULSE 69; RESP 19; TEMP 37.2; O2SAT 97
== END 2025-06-05 16:41 | disposition home or self-care (01) ==
LOC: HO.ED 08:50 → HO.EDOVER 10:00 → HO.S3 13:53
PROVIDERS: Emergency Medicine; Admitting Provider Internal Medicine; Emergency Provider Emergency Medicine Emergency Medical Services; Visit Provider Hospitalist
DX: L02.01 Cutaneous abscess of face (principal); L03.90 Cellulitis, unspecified; R51.9 Headache, unspecified; R50.9 Fever, unspecified
CPT/HCPCS: 10060; 36415; 70491; 80048; 80202; 82565; 83605; 85025; 87040; 96365; 96366; 96367; 96375; 99221; 99285; J1885; J2543; J3373; J3374; Q9967

== ENCOUNTER → 2025-06-02 05:53 | Outpatient (BNV) | payer OTHER, SELFPAY | PROVIDERS: Admitting Provider Internal Medicine; Emergency Provider Emergency Medicine Emergency Medical Services; Visit Provider Radiology Diagnostic Radiology | DX: L02.11 Cutaneous abscess of neck (principal); R22.0 Localized swelling, mass and lump, head; R60.0 Localized edema | CPT/HCPCS: 70491 ==

== ENCOUNTER → 2025-06-02 06:06 | Outpatient (BNV) | payer OTHER, SELFPAY | PROVIDERS: Emergency Provider Emergency Medicine Emergency Medical Services; Visit Provider Internal Medicine | DX: L02.01 Cutaneous abscess of face (principal); L03.90 Cellulitis, unspecified | CPT/HCPCS: 99232 ==

== ENCOUNTER → 2025-06-02 09:12 | Outpatient (BNV) | payer OTHER, SELFPAY | PROVIDERS: Admitting Provider Internal Medicine; Emergency Provider Emergency Medicine Emergency Medical Services; Visit Provider Surgery | DX: L02.01 Cutaneous abscess of face (principal) | CPT/HCPCS: 99222 ==